=== PATIENT | male | born 1940 | race Caucasian/White ===

== ENCOUNTER 2016-08-02 10:41 | Day surgery (SDC) | payer MEDICARE ==
[~2016-08-02] VITALS: Ht 180.3 cm; Wt 108.9 kg
--- NOTE | 2016-08-02 07:00 | PCM.HPANE ---
Patient Data Surgeon Admitting Provider: Attending Provider:Sathish Escobar MD Primary Care Physician:Iesha Devries MD Other Provider:Chel Marshall Anesthesia Reason for Visit Blood In Stool Ht/WT & BMI Body Mass Index Allergies Coded Allergies: tizanidine (Verified Allergy, Mild, fatigue, 08/01/16) Sulfa (Sulfonamide Antibiotics) (Verified Allergy, Unknown, as a baby, 06/07) Medications Reported Medications Beclomethasone Dipropionate (Qvar)8.7 Gm Aer.w.adap1 Puff INHALATION BID #8.7 GM 08/01/16 Triamterene/HCTZ 37.5-25 mg 1 Each Capsule2 Capsule PO DAILY Ref 0 08/01/16 Terazosin 10 Mg Wnjibme53 Mg PO HS Ref 0 08/01/16 Omeprazole 20 Mg Capsule.dr20 Mg PO DAILY Ref 0 08/01/16 Naproxen 250 Mg Rlxqdu130 Mg PO HS PRN For Pain Ref 0 08/01/16 Lisinopril 40 Mg Sqayhn50 Mg PO DAILY 30 Days Ref 0 08/01/16 Atorvastatin (Lipitor)10 Mg Tab10 Mg PO DAILY Ref 0 08/01/16 Fluticasone Propionate (Flonase Allergy Relief)50 Mcg/Actuation [place].susp2 Sprays NS DAILY 08/01/16 Aspirin 81 Mg Pyrssg37 Mg PO DAILY Ref 0 08/01/16 Amlodipine 5 Mg Tablet5 Mg PO DAILY Ref 0 08/01/16 Albuterol HFA (Proair HFA)8.5 Gm Hfa.aer.ad2 Puffs INHALATION Q4H #1 INHALER 08/01/16 Stop/Bang Risk Assessment Category Category 1A: Patient has history of documented sleep apnea, and HAS NOT received any narcotic, sedative or anesthesia administration during this stay. Category 1B: Patient has history of documented sleep apnea, and HAS received any narcotic , sedative or anesthesia administration during this stay Category 2: Patient has SUSPECTED Obstructive Sleep Apnea, and HAS received any narcotic , sedative or anesthesia administration during this stay. Category 3: Patient has SUSPECTED Obstructive Sleep Apnea and HAS NOT received narcotic, sedative or anesthesia administration during this stay. Category 4: Outpatient in Procedural Areas with known sleep apnea or who screen positive for High Risk via the STOP/BANG questionnaire. Exam Exam General Appearance: Alert, Oriented X3, Cooperative HEENT/AIRWAY: MP 2, Neck Movement (trevizo, from), Mouth Opening (wnl) Lungs: Clear to Auscultation Heart: Exam Unremarkable Plan Impression Patient chart reviewed, patient interviewed and anesthestic plan with risks, benefits, and alternatives discussed, and informed consent obtained. ASA Physical Status: ASA2 Mod Systemic Disease Anesthetic Plan: GA Bene/Risks/Altern/Consents: Yes HP Complete Prior to Induction: Yes Cullen Chawla MD Aug 02, 2016 07:00
[~2016-08-02 10:41] MED LIST: ALBU8.5H2 INHALATION; AMLO5TAB2 PO; ASPI-973 PO; ATRV10T PO; BECL8.7A6 INHALATION; FLUT9.9S NS; LISI40TA PO; Lactated Ringer's 1,000 ML IV ONE; NAPR250T PO; OMEP20CA11 PO; TERA10CA5 PO; TRIA1CAP5 PO
[2016-08-02] MEDS ORDERED: Propofol 10,000 mCg/mL 20 mL Inj ONE (10:42)
[2016-08-02] MEDS ORDERED: fentaNYL-PF 50 mCg/mL 2 mL Inj ONE (10:42)
[2016-08-02 11:06] VITALS: BP 129/76; PULSE 56; RESP 14; O2SAT 98
[2016-08-02] MEDS ORDERED: Lactated Ringer's 1,000 ML IV SCH (11:39)
[2016-08-02] MEDS ORDERED: Ondansetron 2 mg/mL 2 mL Inj IVPUSH PRN (11:40)
[2016-08-02] MEDS ORDERED: MetoCLOpramide 5 mg/mL 2 mL Inj IVPUSH PRN (11:40)
[2016-08-02 12:12] VITALS: BP 118/77; PULSE 91; RESP 14; O2SAT 93
[2016-08-02 12:21] VITALS: BP 118/75; PULSE 59; RESP 14; O2SAT 95
--- NOTE | 2016-08-02 12:28 | PCM.ANEP2 ---
Post Anesthesia Evaluation ASA/CMS Post Anesthesia VS in Patient's Normal Range?: Yes Resp Stable; Airway Patent?: Yes CV Function & Hydration Stable: Yes Mental Status Recovered?: Yes Pain control Satisfactory?: Yes N/V Control Satisfactory?: Yes Cullen Chawla MD Aug 02, 2016 12:28
--- NOTE | 2016-08-02 12:28 | PCM.ANEP1 ---
Post Anesthesia Phase 1 PACU Phase 1 Assessment Vital Signs Vital Signs Date Time Temp Pulse Resp B/P Pulse Ox O2 Delivery O2 Flow Rate FiO2 08/02/16 12:21 59 14 118/75 95 Room Air 08/02/16 12:12 91 14 118/77 93 Room Air 08/02/16 11:06 36.8 56 14 129/76 98 Room Air Anesthetic Administered: GA Level of Alertness: Awake, talking VILLALTA's with Equal Strength: Yes Pain: No Nausea or Vomiting: No Oxygen Delivery: Room Air Lungs: Normal Air Movement Cullen Chawla MD Aug 02, 2016 12:28
[2016-08-02 12:30] VITALS: BP 128/75; PULSE 57; RESP 14; O2SAT 94
--- NOTE | 2016-08-02 13:40 | ENDO ---
[address] [address] ENDOSCOPY PROCEDURE PATIENT: VINEET STACY : 1940 MR#: [id number] ADMIT: 08/02/2016 JOB ID: [id number] DATE: 08/02/2016 INDICATION: Blood in stool. The patient's ASA classification, Mallampati score, and medications as per Dr. Cullen Chawla' anesthesia report. INSTRUMENT USED: PCF H 180 AL. PREPARATION QUALITY: Was good. PROCEDURE DETAILS: After informed consent was obtained, the patient was brought into the GI suite, where he was placed on oxygen via nasal cannula and monitored with continuous pulse oximeter, telemetry and blood pressure monitoring. A time-out was performed. Then, he was placed in a left lateral decubitus position and medications were administered for sedation. A digital rectal examination with palpation of the prostate was performed, which was unremarkable. The colonoscope was then inserted into the rectum and advanced under direct visualization to the cecum, which was identified by the presence of the ileocecal valve and appendiceal orifice. Once the cecum was reached, the colonoscope was withdrawn back into the rectum and the mucosa and lumen were examined. In the rectum, retroflexion was performed. Following retroflexion, remaining air in the rectum was suctioned, and the procedure was completed. FINDINGS: 1. In the descending colon, there were two polyps ranging in size from 5 mm to approximately 8 mm. The 8 mm polyp was near a diverticulum. A portion of the polyp appeared to be inside the diverticulum. Using a hot snare, this was removed. Following removal of the polyp, one hemoclip was placed to approximate the diverticulum. 2. Also, in the descending colon, there were two 5 mm polyps that were both removed with a hot snare. 3. In the transverse colon, there was a diminutive polyp that was removed with cold biopsy forceps. 4. In the sigmoid colon there was an approximately 6 mm sessile polyp that was removed with a hot snare. 5. In the proximal rectum, there was an approximately 8 mm sessile polyp that was removed with a hot snare. 6. As we withdrew the colonoscope from the cecum, the hemoclip that was placed on the descending colon polypectomy site as we were inserting the scope to the cecum appeared to have migrated. We attempted to locate the area where we placed the clip at the polypectomy site. However, we were unable to identify this site. 7. Retroflexed views in the rectum revealed small internal hemorrhoids. IMPRESSION: 1. Three descending colon polyps. 2. One transverse colon polyp. 3. One sigmoid polyp. 4. One rectal polyp. 5. [place] diverticulosis. 6. Internal hemorrhoids. RECOMMENDATIONS: 1. Avoid nonsteroidal anti-inflammatory drugs and anticoagulants for 72 hours. 2. Repeat colonoscopy pending polyp pathology results. COMPLICATIONS: None. ESTIMATED BLOOD LOSS: Less than 5 mL.
--- NOTE | 2016-08-03 14:07 | PATH ---
SURGICAL PATHOLOGY Attending Physician:Janel Villeda CASE STATUS: Signed Out PATIENT NAME: VINEET STACY PID: [id number] : 1940 DATE COLLECTED:08/02/2016 20:23 SPECIMEN: 1: Colon, Biopsy 2: Colon, Biopsy 3: Colon, Biopsy 4: Rectum, Biopsy CLINICAL HISTORY: POLYPS 1). DESCENDING COLON POLYPS X3 2). TRANSVERSE COLON POLYP X1 3). SIGMOID COLON POLYP X1 4). RECTAL POLYP FINAL DIAGNOSIS: 1.DESCENDING COLON POLYPS: CHANGES CONSISTENT WITH BENIGN INFLAMMATORY POLYPS WITH FRAGMENTS OF GRANULATION TISSUE. NEGATIVE FOR DYSPLASIA AND MALIGNANCY. 2.TRANSVERSE COLON POLYP: TUBULAR ADENOMA. 3.SIGMOID COLON POLYP: CHANGES CONSISTENT WITH BENIGN INFLAMMATORY POLYP WITH FOCAL MUCOSAL HYPERPLASIA. NEGATIVE FOR DYSPLASIA AND MALIGNANCY. 4.RECTAL POLYP: POLYPOID TUBULAR ADENOMA APPARENTLY EXCISED IN THE PLANE OF SECTION. ICD10 CODE D12.3 NOTE: The material from parts 1 and [address] Clarisse Hays, who agrees with the diagnosis. GROSS DESCRIPTION: The specimen is received in four formalin filled containers labeled with the patient's name. 1). The specimen is sublabeled "descending colon polyps" and consists of 5 portions of tissue which aggregate to 0.6 x 0.6 x 0.4 CM. The specimen is entirely submitted in cassette 1A. 2). The specimen is sublabeled "transverse colon polyp" and consists of a 0.3 x 0.3 x 0.2 CM portion of tissue which is entirely submitted in cassette 2A. 3). The specimen is sublabeled "sigmoid colon polyp" and consists of a 0.5 x 0.5 x 0.5 CM portion of tissue which is entirely submitted in cassette 3A. 4). The specimen is sublabeled "rectal polyp" and consists of a 0.7 x 0.6 x 0.5 CM portion of tissue which is trisected and totally submitted in cassette 4A. 08/02/2016 DAC MICRO DESCRIPTION: See diagnosis. ICD-9 CODES: CPT CODES: 1: 25062 2: 40195 3: 41120 4: 41032 Electronically Signed Out Mateus Trotter MD [facility] Pathology [facility] [address] [place] [id number] Technical component performed at [facility], [address], [place], [address]
== END 2016-08-02 23:59 | disposition home or self-care (01) ==
LOC: END 10:41
PROVIDERS: ATTEND Internal Medicine Gastroenterology
DX: D12.3 Benign neoplasm of transverse colon (principal); D12.8 Benign neoplasm of rectum; K51.40 Inflammatory polyps of colon without complications; K57.32 Diverticulitis of large intestine without perforation or abscess without bleeding; K64.8 Other hemorrhoids; I10 Essential (primary) hypertension; J45.909 Unspecified asthma, uncomplicated; G47.33 Obstructive sleep apnea (adult) (pediatric); Z79.82 Long term (current) use of aspirin
CPT/HCPCS: 45380; 45385; J2250; J7120